=== PATIENT | male | born 1960 | race Caucasian/White ===

== ENCOUNTER 2019-10-18 01:19 | Outpatient (CLI) | payer OTHER, SELFPAY ==
[2019-10-18 09:34] LABS: ALT 36 U/L (16-63); AST 38 U/L (15-37); Albumin 3.8 g/dL (3.4-5.0); Alkaline Phosphatase 87 U/L (46-116); Anion Gap 11.1 mmol/L (3-11); BUN 23 mg/dL (7-18); CO2 24.9 mmol/L (21.0-32.0); CREATININE 1.17 mg/dL (0.70-1.30); Calcium 8.8 mg/dL (8.5-10.1); Calculated LDL 78 mg/dL (<100); Chloride 104 mmol/L (98-107); Cholesterol 174 mg/dL (<200); Glucose 97 mg/dL (74-106); HDL Cholesterol 69 mg/dL (40-60); Potassium 3.9 mmol/L (3.5-5.1); Sodium 140 mmol/L (136-145); Total Protein 6.8 g/dL (6.4-8.2); Triglyceride 138 mg/dL (<150)
[2019-10-18 09:59] LABS: TSH (W/Ref FT4) 8.56 uIU/mL (0.36-3.74)
[2019-10-18 10:18] LABS: FREE T4 1.05 ng/dL (0.76-1.46)
== END 2019-10-18 01:39 ==
PROVIDERS: PCP Family Medicine; Visit Provider Family Medicine
DX: E03.9 Hypothyroidism, unspecified (principal); E78.5 Hyperlipidemia, unspecified
CPT/HCPCS: 36415; 80053; 80061; 84439; 84443

== ENCOUNTER 2020-09-25 07:44 | Emergency (ER) | payer OTHER, SELFPAY ==
[2020-09-25 07:49] VITALS: BP 136/91; PULSE 71; RESP 16; TEMP 36.3; O2SAT 98
[2020-09-25] MEDS: Lidocaine 1% Multi-Dose 50 ML VIAL IJ (08:30)
[2020-09-25] MEDS: Lidocaine 4% Cream 5 GM TUBE TP (08:30)
--- NOTE | 2020-09-25 08:38 | DI.RAD_ITS ---
Exam(s) XR ANKLE LT COMPLETE EXAM: XR ANKLE LT COMPLETE CLINICAL HISTORY: twisted, pain medial. TECHNIQUE: 2D digital imaging was performed. COMPARISON: No exams were available for comparison FINDINGS: There is a 10 x 3 millimeter calcific density off the inferior aspect of the medial malleolus which p robably does not represent an acute fracture fragment given its appearance and lack of overlying soft tissue swelling. Lateral malleolus appears un remarkable. There is no widening of the mortise. Th e talar dome appears unremarkable. Small inferior calcaneal spur is noted. No osseous tarsal coalit ion evident. IMPRESSION: DATA REPOSITORY: RADIATION DOSE DELIVERED:
--- NOTE | 2020-09-25 09:31 | W.ED.GENAD ---
Discharge Plan Disposition Patient Disposition: HOME Condition: Stable Discharge Details Clinical Impression: Acute left ankle pain, Ankle fracture, left Primary Care Provider: Chris Petersen ED Provider: Sandro Raya Home Meds and New Rx's Prescriptions: Continued levothyroxine 88 mcg capsule 88 mcg PO DAILY Qty: 90 RF: 3 atorvastatin 40 mg tablet 40 mg PO QHS Qty: 90 RF: 3 losartan 25 mg tablet 25 mg PO DAILY Qty: 90 RF: 3 omeprazole 20 mg capsule,delayed release(DR/EC) 20 mg PO DAILY Qty: 90 RF: 3 meclizine 25 mg tablet 25 mg PO TID PRN (Reason: dizziness) Qty: 30 RF: 2 Discharge Instructions Instructions: Ankle Fracture (ED) Additional Instructions: You have an ossific density medial malleolus noted on x-ray of your ankle that is concerning for a chronic fracture. Please use orthopedic walking boot and crutches. You can weight-bear as tolerated. Please take ibuprofen over the counter. Take 600mg by mouth every 6 hours as needed for pain. Please contact orthopedics to arrange follow-up. Return to the ER for any worsening or new concerning symptoms. Referrals: [facility] [Provider Group] Medical Decision Making 59-year-old male here with left ankle pain that started after mild twisting injury 3 days ago, worse after ambulating. He has some mild localized inflammation right medial ankle with tenderness, ankle does appear swollen. X-rays of the left ankle was reviewed and interpreted by radiology:There is a 10 x 3 millimeter calcific density off the inferior aspect of the medial malleolus which probably does not represent an acute fracture fragment given its appearance and lack of overlying soft tissue swelling. Lateral malleolus appears un remarkable. There is no widening of the mortise. The talar dome appears unremarkable. Small inferior calcaneal spur is noted. No osseous tarsal coalition evident. Patient does consume alcohol regularly. Consider initial gout flare. Unlikely septic arthritis. Patient provided informed consent to arthrocentesis. I attempted arthrocentesis was not able to collect synovial fluid for analysis. Suspect reactive arthritis secondary to chronic fracture and recent injury. I spoke with Dr. Bull discussed ED presentation course including diagnostics and he recommends observation, no labs at this time and will see patient in follow-up. Plan for Ortho boot, crutches, weight-bear as tolerated with NSAIDs and follow-up with orthopedics. HPI General Mode of arrival: ambulatory. Date/Time Provider Initiated Documentation: 09/25/20 08:00. Limitations to Documentation: no limitations. Information obtained by: patient. HPI Narrative: 59-year-old male presents with chief complaint of left ankle pain. Patient notes he experienced vertigo 3 days ago and was getting up to go to the bathroom twisted his left ankle. At some mild pain in his ankle the next day but he was able to ambulate on it and went to work and was on his feet. That evening and the following day pain worse. Pain localized to his entire ankle but worse medially. He has had some associated tingling of his foot. Today he notes that medial ankle seemed a bit red. No associated fever. Patient does have a remote history of calcaneal fracture. He does note a similar flare with pain in his ankle remotely that resolved on its own. He does consume alcohol regularly. Related Data Home Medications Medication Instructions Recorded Confirmed atorvastatin 40 mg tablet 40 mg PO QHS #90 tab 10/11/19 09/25/20 losartan 25 mg tablet 25 mg PO DAILY #90 tab 10/11/19 09/25/20 omeprazole 20 mg capsule,delayed 20 mg PO DAILY #90 cap 10/11/19 09/25/20 release levothyroxine 88 mcg capsule 88 mcg PO DAILY #90 cap 10/25/19 09/25/20 meclizine 25 mg tablet 25 mg PO TID PRN #30 tab 02/27/20 09/25/20 Previous Rx's Medication Instructions Recorded atorvastatin 40 mg tablet 40 mg PO QHS #90 tab 10/11/19 losartan 25 mg tablet 25 mg PO DAILY #90 tab 10/11/19 omeprazole 20 mg capsule,delayed 20 mg PO DAILY #90 cap 10/11/19 release levothyroxine 88 mcg capsule 88 mcg PO DAILY #90 cap 10/25/19 meclizine 25 mg tablet 25 mg PO TID PRN #30 tab 02/27/20 Allergies Allergy/AdvReac Type Severity Reaction Status Date / Time lisinopril Allergy Unknown Cough Verified 09/25/20 07:56 Penicillins Allergy Unknown Verified 09/25/20 07:56 Sulfa (Sulfonamide Allergy Unknown Verified 09/25/20 07:56 Antibiotics) General Stated Complaint: Orthopedic JULIO CESAR: 4 Review of Systems Musculoskeletal Musculoskeletal: Reports as per HPI Neurologic Neurologic: Reports as per HPI [facility] Medical History ADHD Anxiety Benign positional vertigo Calcaneal osteochondritis Chest pain (~2005) ETT NORMAL,EKG NORMAL Depression, major, recurrent, moderate Essential hypertension GERD (gastroesophageal reflux disease) Hyperlipidemia Hypothyroidism Impaired fasting glucose Insomnia Palpitations ETT AND EKG NORMAL PND (post-nasal drip) Surgical History History of cardiac catheterization (01/01/15) S/P anal fissurectomy (~2005) Family History Mother Hypertension Social History Smoking/Tobacco Use Status: Former Tobacco Use Quit Date: 04/11/88 Tobacco: How many years used: 12 Smoking risk assessment performed?: Yes Alcohol Intake: current Alcohol Intake frequency: 0-2 drinks per day Alcohol type: beer, wine and hard liquor Drug use: Never Substance use type: does not use Caregiver/Support person: No Household members: spouse Housing: apartment Communication Needs: None Do you need help understanding health information?: Rarely current occupation: Nutrition/Human Resources Coordinator - [employer] Sexually active: Yes Do you think of yourself as: straight/heterosexual Current gender identity: male What type of physical activity do you participate in: none Sendy/Christianity: Mormon Seatbelt use: always Helmet use: Yes Drive intox or ride w/intox ambulette driver: No Working smoke detector in home: Yes Fire extinguisher in home: Yes Carbon monox detector in home: Yes Firearms in home: No Do you feel safe at home: Yes Do you feel safe in your relationship?: Yes Exam Const General: cooperative and no acute distress HENMT Mouth: moist mucous membranes Eyes Conjunctivae: normal conjunctivae Cardio Rate: regular rate and not tachycardic Rhythm: regular rhythm Skin General skin exam: no rashes or lesions noted Neuro General: patient alert, patient awake, patient oriented x3 and tone normal Extrem General: no edema Right lower extremity: ankle Details: tenderness Location: of the medial malleolus, swelling Details: medially and anteriorly, abnormal ROM Details: pain with active ROM Details: with inversion and other (Mild redness medial ankle); no unusual warmth Course Vital Signs Vital signs: Vital Signs Temperature 36.3 C L 09/25/20 07:49 Pulse 71 09/25/20 07:49 Respiratory Rate 16 09/25/20 07:49 Blood Pressure 136/91 H 09/25/20 07:49 Pulse Oximetry 98 09/25/20 07:49 Temperature 36.3 C L 09/25/20 07:49 Temperature Source Skin 09/25/20 07:49 Pulse 71 09/25/20 07:49 Respiratory Rate 16 09/25/20 07:49 Respiratory Effort Non-Labored 09/25/20 07:49 Blood Pressure 136/91 H 09/25/20 07:49 Blood Pressure Position Sitting 09/25/20 07:49 Pulse Oximetry 98 09/25/20 07:49 Pain Level 5 09/25/20 07:57 Procedures Joint Aspiration/Injection Joint Asp./Inject. 1: Time Out Performed: Yes Side of body: left Joint Aspirated: ankle Skin Prep: sterile prep and drape Local Anesthetic: Lidocaine 1% Amount of anesthesia used (mL): 2 Needle Size Used: 18G Patient Tolerated Procedure: other Complications: pain Additional Comments: no fluid identified or collected
[2020-09-25] MEDS: Ibuprofen 600 MG TAB PO (10:00)
== END 2020-09-25 10:05 | disposition home or self-care (01) ==
PROVIDERS: Emergency Provider Student in an Organized Health Care Education/Training Program; PCP Family Medicine
DX: M25.572 Pain in left ankle and joints of left foot (principal); S82.892A Other fracture of left lower leg, initial encounter for closed fracture; X58.XXXA Exposure to other specified factors, initial encounter
CPT/HCPCS: 29515; 99283; 73610